=== PATIENT | female | born 1990 | race Caucasian/White ===

== ENCOUNTER 2017-01-11 08:18 | Emergency (ER) | payer OTHER ==
[~2017-01-11] VITALS: Ht 175.3 cm; Wt 86.2 kg
[~2017-01-11 08:18] MED LIST: BENZ100C PO; ONDA4TAB10 PO; PRED20TA PO
[2017-01-11 08:20] VITALS: BP 119/75
[2017-01-11] MEDS ORDERED: IV NORMAL SALINE 1,000ML 1,000 ML IV ONE (09:00)
[2017-01-11] MEDS ORDERED: FAMOTIDINE 20 MG/2 ML VIAL IVP ONE (09:20)
[2017-01-11] MEDS ORDERED: ONDANSETRON PF 4 MG/2 ML VIAL. IV ONE (09:20)
--- NOTE | 2017-01-11 12:53 | ED.ADGEN ---
Past History Past Medical History: No Pertinent History Past Surgical History: No Surgical History Alcohol Use: Occasionally Drug Use: None Adult General Chief Complaint Chief Complaint Nausea, diarrhea HPI HPI Patient is a 26-year-old female presents with nausea, multiple episodes of watery diarrhea for the past 24 hours. Patient denies vomiting, but states she is unable to drink due to severe nausea. Denies fever chills, sweats. No abdominal pain. Reports generally weak and fatigued. Multiple GI illness exposures at home. No other acute symptoms or complaints. Last menstrual period earlier this month. Review of Systems Review of Systems Review symptoms as per history of present illness. All other review symptoms are negative. Current Medications Current Medications Current Medications Medications (Trade) Dose Ordered Sig/Renard Start Time Stop Time Status Last Admin Dose Admin Famotidine (Pepcid) 20 mg 1X ONCE 01/11/17 09:20 01/11/17 09:21 DC 01/11/17 09:14 20 MG Ondansetron HCl (Zofran) 4 mg 1X ONCE 01/11/17 09:20 01/11/17 09:21 DC 01/11/17 09:14 4 MG Sodium Chloride (Iv Sodium Chloride 0.9% 1,000ml) 1,000 ml @ 1,000 mls/hr 1X ONCE 01/11/17 09:00 01/11/17 09:59 DC 01/11/17 09:15 1,000 MLS/HR Allergies Allergies Allergies Coded Allergies Type Severity Reaction Last Updated Verified No Known Drug Allergies 02/14/15 No Physical Exam Physical Exam Constitutional: Well developed, well nourished, no acute distress, non-toxic appearance. HENT: Normocephalic, atraumatic, bilateral external ears normal, oropharynx moist, no oral exudates, nose normal. Eyes: PERRLA, EOMI, conjunctiva normal. Neck: Normal range of motion, no tenderness, supple. Cardiovascular:Heart rate regular rhythm, no murmur. Lungs & Thorax: Bilateral breath sounds clear to auscultation. Abdomen: Bowel sounds normal, soft, no tenderness. Skin: Warm, dry. Back: No tenderness. Extremities: No tenderness. Neurologic: Alert and oriented X 3, normal motor function, normal sensory function, no focal deficits noted. Psychologic: Affect normal, judgement normal, mood normal. Current Patient Data Vital Signs Vital Signs Date Time Temp Pulse Resp B/P Pulse Ox O2 Delivery O2 Flow Rate FiO2 01/11/17 08:20 97.9 93 20 97 Room Air EKG EKG [] Radiology/Procedures Radiology/Procedures [] Impressions: Nausea and diarrhea consistent with GI illness prevalent community Course & Med Decision Making Course & Med Decision Making Pertinent Labs and Imaging studies reviewed. (See chart for details) [And soft, nontender tender. Symptoms significantly improved with treatment. Will continue supportive care with PCP follow-up. Return precautions reviewed.] Final Impression Final Impression [1. Nausea and diarrhea] Problems: Dragon Disclaimer Dragon Disclaimer This electronic medical record was generated, in whole or in part, using a voice recognition dictation system. MEEK RYDER DO Jan 11, 2017 10:02
== END 2017-01-11 10:47 | disposition home or self-care (01) ==
LOC: ER 08:18
DX: R11.0 Nausea (principal); R19.7 Diarrhea, unspecified; R53.1 Weakness
CPT/HCPCS: 96361; 96374; 96375; 99284; J2405; S0028; J7030

== ENCOUNTER 2017-01-16 20:57 | Emergency (ER) | payer OTHER ==
[~2017-01-16] VITALS: Ht 175.3 cm; Wt 84.5 kg
[2017-01-16 20:57] VITALS: BP 128/73
[2017-01-16] MEDS ORDERED: CIPR500T94 PO (21:25)
[2017-01-16] MEDS ORDERED: HYDR-971 PO (21:25)
--- NOTE | 2017-01-16 22:17 | ED.ADGEN ---
Past History Past Medical History: No Pertinent History Past Surgical History: No Surgical History Alcohol Use: Occasionally Drug Use: None Adult General HPI HPI Patient is a 26-year-old female presents emergency Department with continued diarrhea for the last 4-5 days. She also reports some left flank pain. She denies any fevers, chills, nausea, vomiting. Review of Systems Review of Systems Constitutional: Denies fever or chills [] Eyes: Denies change in visual acuity, redness, or eye pain [] HENT: Denies nasal congestion or sore throat [] Respiratory: Denies cough or shortness of breath [] Cardiovascular: No additional information not addressed in HPI [] GI: Denies abdominal pain, nausea, vomiting, bloody stools or diarrhea [] : Denies dysuria or hematuria [] Musculoskeletal: Denies back pain or joint pain [] Integument: Denies rash or skin lesions [] Neurologic: Denies headache, focal weakness or sensory changes [] Endocrine: Denies polyuria or polydipsia [] Allergies Allergies Allergies Coded Allergies Type Severity Reaction Last Updated Verified No Known Drug Allergies 02/14/15 No Physical Exam Physical Exam Constitutional: Well developed, well nourished, no acute distress, non-toxic appearance. [] HENT: Normocephalic, atraumatic, bilateral external ears normal, oropharynx moist, no oral exudates, nose normal. [] Eyes: PERRLA, EOMI, conjunctiva normal, no discharge. [] Neck: Normal range of motion, no tenderness, supple, no stridor. [] Cardiovascular:Heart rate regular rhythm, no murmur [] Lungs & Thorax: Bilateral breath sounds clear to auscultation [] Abdomen: Bowel sounds normal, soft, no tenderness, no masses, no pulsatile masses. [] Skin: Warm, dry, no erythema, no rash. [] Back: No tenderness, no CVA tenderness. [] Extremities: No tenderness, no cyanosis, no clubbing, ROM intact, no edema. [] Neurologic: Alert and oriented X 3, normal motor function, normal sensory function, no focal deficits noted. [] Psychologic: Affect normal, judgement normal, mood normal. [] EKG EKG [] Radiology/Procedures Radiology/Procedures [] Course & Med Decision Making Course & Med Decision Making Pertinent Labs and Imaging studies reviewed. (See chart for details) Patient has a urinary tract infection. I did give her supportive care structures regarding her diarrhea. She was started on Cipro and [place]. She will follow with her doctor as needed return emergency department sooner she develops new or worsening symptoms. [] Final Impression Final Impression Urinary tract infection [] Problems: Dragon Disclaimer Dragon Disclaimer This electronic medical record was generated, in whole or in part, using a voice recognition dictation system. ASHTYN ALLRED MD Jan 16, 2017 22:17
[2017-01-16 22:52] LABS: BILIRUBIN,URINE NEG (NEG); CLARITY,URINE CLOUDY; COLOR,URINE YELLOW; GLUCOSE,URINE NEG (NEG); NITRITE,URINE NEG (NEG); UROBILINOGEN,URINE 0.2 mg/dL (0.2 mg/dL)
[2017-01-16 23:00] LABS: BACTERIA,URINE FEW /HPF (0-FEW); SQUAMOUS EPITHELIAL CELL,UR MANY /LPF
== END 2017-01-16 21:28 | disposition home or self-care (01) ==
LOC: ER 20:57
DX: N39.0 Urinary tract infection, site not specified (principal); R19.7 Diarrhea, unspecified
CPT/HCPCS: 81001; 87086; 99284

== ENCOUNTER 2017-03-08 02:39 | Emergency (ER) | payer OTHER ==
[~2017-03-08] VITALS: Ht 170.2 cm; Wt 86.2 kg
[~2017-03-08 02:39] MED LIST changes: +CIPR500T94 PO; +HYDR-971 PO
[2017-03-08 02:50] VITALS: BP 118/70
[2017-03-08] MEDS ORDERED: ONDANSETRON ODT 4 MG TAB.RAPDIS PO ONE (03:30)
[2017-03-08] MEDS ORDERED: HYDROmorphone PF 1 MG/ML DISP.SYRIN IM ONE (03:30)
[2017-03-08 03:41] LABS: BILIRUBIN,URINE NEG (NEG); CLARITY,URINE HAZY; COLOR,URINE YELLOW; GLUCOSE,URINE NEG (NEG)
[2017-03-08 03:42] LABS: AMORPHOUS SEDIMENT,UR PRESENT /HPF; BACTERIA,URINE FEW /HPF (0-FEW); NITRITE,URINE NEG (NEG); SQUAMOUS EPITHELIAL CELL,UR FEW /LPF; UROBILINOGEN,URINE 0.2 mg/dL (0.2 mg/dL); WBC,URINE OCC /HPF (0-4)
[2017-03-08] MEDS ORDERED: KETOROLAC 30 MG/ML VIAL. IM ONE (04:00)
[2017-03-08] MEDS ORDERED: IBUP600T16 PO (04:02)
[2017-03-08] MEDS ORDERED: HYDR-2678 PO (04:02)
--- NOTE | 2017-03-08 04:02 | PHYS DOC ---
Past History Past Medical History: Sciatica Past Surgical History: No Surgical History Alcohol Use: None Drug Use: None Adult General Chief Complaint Chief Complaint: PELVIC PAIN HPI HPI Patient is a 26-year-old female with no significant past medical history who presents here today complaining of severe suprapubic pain that occurred during sexual activity approximately one half hours prior to arrival to the ER. Patient denies any new sexual partners. Patient denies any sexual positions. Patient denies any vaginal bleeding or vaginal discharge. Patient denies any pelvic pain prior to having sex this evening. Patient has any fevers shakes chills nausea. Patient did have one episode of nausea and vomiting after the pain started. Patient denies any diarrhea. Patient denies any dysuria frequency or urgency. Patient denies any vaginal discharge. Patient has any vaginal bleeding. Patient denies any rectal pain. Patient has any rectal bleeding. Patient reports her last menstrual period was approximately 3 weeks ago. Patient reports she does have the Mirena in but this is not new for her. Patient's physical exam was remarkable for suprapubic tenderness to palpation. Patient has no rebound or guarding. Patient has no psoas or obturator signs. Patient has normal active bowel sounds. Patient has no tenderness over right lower quadrant over McBurney's point. Patient does not have a Randall sign. Patient's pelvic exam was remarkable for tenderness to palpation to her suprapubic region on exam. Patient not have any adnexal masses or tenderness. Patient not have any lateralizing pain. Pain was focused in the suprapubic/ uterine region. Patient not having cervical motion tenderness. Patient have any vaginal bleeding. She have any vaginal discharge. Patient's os was normal. There was no bleeding noticed. There is no trauma noticed within the vaginal vault. The Mirena string was intact and visible. Patient's ER hospital course was significant for significant improvement in the pain after receiving Dilaudid 0.5 mg IM. Patient tolerated the pelvic exam well. After the pelvic exam she did have increased discomfort so Toradol 60 IM was also given. I discussed with the patient the option of getting a CT scan of her abdomen and pelvis. Patient's physical exam currently did not exhibit any signs or symptoms of an acute surgical abdomen. The risks and benefit of radiation versus observation were discussed with the patient the patient currently prefers waiting and observing. I discussed with the patient that the pain increases or changes that she needs to return immediately to get the CT scan. Patient is in complete agreement with this plan. Utilizing shared decision making we have opted to hold off for getting a CT scan of her abdomen and pelvis given the increased risk of radiation and cancer down the road. Although I told the patient that a CT scan would help rule out several other pathology I think the likelihood of an abnormality being found by the CT scan that would be intervened on by us is relatively low although not impossible. Assessment and plan #1 suprapubic pain and abdominal discomfort occurring after sexual intercourse. Etiology is unclear however most likely secondary to trauma from sex. Patient prefers to wait prior to any further radiological studies. Patient will be treated with pain meds for the next 24 hours and she'll reassess the situation that point to determine whether or not she wants to return to the ER to get a CT scan. I do not disagree with this plan and I think this is 1 potential option. Patient has refused a CT scan of the abdomen and pelvis at this time. Patient's urinalysis was unremarkable. Review of Systems Review of Systems Constitutional: Denies fever or chills [] Eyes: Denies change in visual acuity, redness, or eye pain [] HENT: Denies nasal congestion or sore throat [] Respiratory: Denies cough or shortness of breath [] All other review systems are negative except as documented in the history of present illness portion. Current Medications Current Medications Current Medications Medications (Trade) Dose Ordered Sig/Renard Start Time Stop Time Status Last Admin Dose Admin Hydromorphone HCl (Dilaudid) 0.5 mg 1X ONCE 03/08/17 03:30 03/08/17 03:31 DC 03/08/17 03:10 0.5 MG Ketorolac Tromethamine (Toradol) 60 mg 1X ONCE 03/08/17 04:00 03/08/17 04:01 Ondansetron HCl (Zofran Odt) 4 mg 1X ONCE 03/08/17 03:30 03/08/17 03:31 DC 03/08/17 03:11 4 MG Allergies Allergies Allergies Coded Allergies Type Severity Reaction Last Updated Verified No Known Drug Allergies 03/08/17 No Physical Exam Physical Exam Constitutional: Well developed, well nourished, no acute distress, non-toxic appearance. [] HENT: Normocephalic, atraumatic, bilateral external ears normal, oropharynx moist, no oral exudates, nose normal. [] Eyes: PERRLA, EOMI, conjunctiva normal, no discharge. [] Neck: Normal range of motion, no tenderness, supple, no stridor. [] Cardiovascular:Heart rate regular rhythm, no murmur [] Lungs & Thorax: Bilateral breath sounds clear to auscultation [] Abdomen: Bowel sounds normal, soft, tenderness noted to palpation in the suprapubic region. Patient not exhibiting any signs or symptoms O be consistent with an acute surgical abdomen., no masses, no pulsatile masses. [] Skin: Warm, dry, no erythema, no rash. [] Back: No tenderness, no CVA tenderness. [] Extremities: No tenderness, no cyanosis, no clubbing, ROM intact, no edema. [] Neurologic: Alert and oriented X 3, normal motor function, normal sensory function, no focal deficits noted. [] Psychologic: Affect normal, judgement normal, mood normal. [] Pelvic exam: Please see above. Reevaluation multiple times in the ER reveals no surgical abdomen. Patient's exam is benign at this time. Patient still does have some suprapubic tenderness to palpation. Current Patient Data Vital Signs Vital Signs Date Time Temp Pulse Resp B/P (MAP) Pulse Ox O2 Delivery O2 Flow Rate FiO2 03/08/17 03:45 97 Room Air 03/08/17 02:50 98.1 75 Lab Results Laboratory Tests Test 03/08/17 03:15 Urine Collection Type Unknown Urine Color Yellow Urine Clarity Hazy Urine pH 7.0 Urine Specific [place] 1.020 Urine Protein Trace (NEG-TRACE) Urine Glucose (UA) Neg mg/dL (NEG) Urine Ketones (Stick) Neg mg/dL (NEG) Urine Blood Trace (NEG) Urine Nitrite Neg (NEG) Urine Bilirubin Neg (NEG) Urine Urobilinogen Dipstick 0.2 mg/dL (0.2 mg/dL) Urine Leukocyte Esterase Neg (NEG) Urine RBC 1-2 /HPF (0-2) Urine WBC Occ /HPF (0-4) Urine Squamous Epithelial Cells Few /LPF Urine Amorphous Sediment Present /HPF Urine Bacteria Few /HPF (0-FEW) Urine Mucus Slight /LPF EKG EKG [] Radiology/Procedures Radiology/Procedures [] Course & Med Decision Making Course & Med Decision Making Pertinent Labs and Imaging studies reviewed. (See chart for details) [] Dragon Disclaimer Dragon Disclaimer This chart was dictated in whole or in part using Voice Recognition software in a busy, high-work load, and often noisy Emergency Department environment. It may contain unintended and wholly unrecognized errors or omissions. Departure Departure: Impression: Primary Impression: Pelvic pain Disposition: HOME, SELF-CARE Condition: IMPROVED Referrals: PCP,NO (PCP) Patient Instructions: Pelvic Pain, Female Scripts Hydrocodone/Acetaminophen (Lortab 5-325 mg Tablet) 1 Each Tablet 1 TAB PO PRN Q6HRS Y for PAIN, #10 TAB 0 Refills Prov: CHARLY PANDA MD 03/08/17 Ibuprofen (IBUPROFEN) 600 Mg Tablet 600 MG PO QID Y for PAIN, #20 Prov: CHARLY PANDA MD 03/08/17 CHARLY PANDA MD March 08, 2017 04:02
[2017-03-11 21:08] LABS: CHLAMYDIA PROBE Negative (Negative)
== END 2017-03-08 04:10 | disposition home or self-care (01) ==
LOC: ER 02:39
DX: R10.2 Pelvic and perineal pain (principal)
CPT/HCPCS: 36415; 81001; 87491; 87591; 96372; 99284; J1170; J1885; Q0111; Q0162

== ENCOUNTER 2018-01-31 17:47 | Emergency (ER) | payer BC, OTHER ==
[~2018-01-31] VITALS: Ht 170.2 cm; Wt 84.5 kg
[~2018-01-31 17:47] MED LIST changes: +HYDR-2678 PO; +IBUP600T16 PO
[2018-01-31] MEDS ORDERED: IV NORMAL SALINE 1,000ML 1,000 ML IV ONE ×2 (18:15→19:30)
[2018-01-31] MEDS ORDERED: ONDANSETRON PF 4 MG/2 ML VIAL. IV ONE ×2 (18:15→19:15)
--- NOTE | 2018-01-31 18:15 | ED.ADGEN ---
Past History Past Medical History: No Pertinent History, Sciatica Past Surgical History: No Surgical History Alcohol Use: Occasionally Drug Use: None Adult General Chief Complaint Chief Complaint nausea/vomiting/diarrhea HPI HPI Patient is a 27 year old female who presents with nausea and vomiting, now with diarrhea. Ate breakfast this am and around 11am started vomiting and this has continued. Initially food but now more phlegm. Pt then developed loose stools with some crampy abdominal pain that resolves with vomiting. No bile or blood in vomit, no known sick contacts, no fevers. Pt denies other alleviating or exacerbating symptoms. No prior abdominal surgeries. LMP 2 weeks ago and denies possibility of being . Pt did drink etoh last night, reports 2 beers. Review of Systems Review of Systems Constitutional: Denies fever or chills [] Eyes: Denies change in visual acuity, redness, or eye pain [] HENT: Denies nasal congestion or sore throat [] Respiratory: Denies cough or shortness of breath [] Cardiovascular: denies chest pain GI:per hpi : Denies dysuria or hematuria [] Musculoskeletal: Denies back pain or joint pain [] Integument: Denies rash or skin lesions [] Neurologic: Denies headache, focal weakness or sensory changes [] Current Medications Current Medications Current Medications Medications (Trade) Dose Ordered Sig/Renard Start Time Stop Time Status Last Admin Dose Admin Ketorolac Tromethamine (Toradol) 30 mg 1X ONCE 01/31/18 19:15 01/31/18 19:16 DC 01/31/18 19:20 30 MG Ondansetron HCl (Zofran) 4 mg 1X ONCE 01/31/18 19:15 01/31/18 19:16 DC 01/31/18 19:19 4 MG Sodium Chloride 1,000 ml @ 1,000 mls/hr 1X ONCE 01/31/18 19:30 01/31/18 20:29 01/31/18 19:20 1,000 MLS/HR Allergies Allergies Allergies Coded Allergies Type Severity Reaction Last Updated Verified No Known Drug Allergies 03/08/17 No Physical Exam Physical Exam Constitutional: Well developed, well nourished, ill appearing, non-toxic appearance. [] HENT: Normocephalic, atraumatic, bilateral external ears normal, oropharynx slightly dry, no oral exudates, nose normal. [] Eyes: PERRLA, EOMI, conjunctiva normal, no discharge. [] Neck: Normal range of motion, no tenderness, supple, no stridor. [] Cardiovascular:Heart rate tachy with regular rhythm, no murmur [] Lungs & Thorax: Bilateral breath sounds clear to auscultation [] Abdomen: Bowel sounds normal, soft, no tenderness, no masses, no pulsatile masses. no guarding or peritoneal signs, non distended, neg mcburneys, neg murphys Skin: Warm, dry, no erythema, no rash. [] Back: No tenderness, no CVA tenderness. [] Extremities: No tenderness, no cyanosis, no clubbing, ROM intact, no edema. [] Neurologic: Alert and oriented X 3, normal motor function, normal sensory function, no focal deficits noted. [] Psychologic: Affect normal, judgement normal, mood normal. [] Current Patient Data Vital Signs Vital Signs Date Time Temp Pulse Resp B/P (MAP) Pulse Ox O2 Delivery O2 Flow Rate FiO2 01/31/18 19:25 95 22 102/56 (71) 99 Room Air 01/31/18 17:56 97.9 Lab Results Laboratory Tests Test 01/31/18 18:12 01/31/18 18:15 01/31/18 19:05 White Blood Count 14.2 x10^3/uL (4.0-11.0) H Red Blood Count 5.23 x10^6/uL (3.50-5.40) Hemoglobin 15.8 g/dL (12.0-15.5) H Hematocrit 46.6 % (36.0-47.0) Mean Corpuscular Volume 89 fL (79-100) Mean Corpuscular Hemoglobin 30 pg (25-35) Mean Corpuscular Hemoglobin Concent 34 g/dL (31-37) Red Cell Distribution Width 13.3 % (11.5-14.5) Platelet Count 207 x10^3/uL (140-400) Neutrophils (%) (Auto) 90 % (31-73) H Lymphocytes (%) (Auto) 5 % (24-48) L Monocytes (%) (Auto) 5 % (0-9) Eosinophils (%) (Auto) 0 % (0-3) Basophils (%) (Auto) 0 % (0-3) Neutrophils # (Auto) 12.7 x10^3uL (1.8-7.7) H Lymphocytes # (Auto) 0.7 x10^3/uL (1.0-4.8) L Monocytes # (Auto) 0.6 x10^3/uL (0.0-1.1) Eosinophils # (Auto) 0.1 x10^3/uL (0.0-0.7) Basophils # (Auto) 0.0 x10^3/uL (0.0-0.2) Sodium Level 141 mmol/L (136-145) Potassium Level 3.6 mmol/L (3.5-5.1) Chloride Level 105 mmol/L (98-107) Carbon Dioxide Level 24 mmol/L (21-32) Anion Gap 12 (6-14) Blood Urea Nitrogen 21 mg/dL (7-20) H Creatinine 0.7 mg/dL (0.6-1.0) Estimated GFR (Cockcroft-Gault) 99.6 BUN/Creatinine Ratio 30 (6-20) H Glucose Level 108 mg/dL (70-99) H Calcium Level 8.8 mg/dL (8.5-10.1) Total Bilirubin 0.7 mg/dL (0.2-1.0) Aspartate Amino Transferase (AST) 20 U/L (15-37) Alanine Aminotransferase (ALT) 49 U/L (14-59) Alkaline Phosphatase 71 U/L (46-116) Total Protein 7.0 g/dL (6.4-8.2) Albumin 3.8 g/dL (3.4-5.0) Albumin/Globulin Ratio 1.2 (1.0-1.7) POC Urine HCG, Qualitative hcg negative (Negative) Urine Collection Type Unknown Urine Color Yellow Urine Clarity Cloudy Urine pH 5.5 Urine Specific [place] 1.015 Urine Protein Neg (NEG-TRACE) Urine Glucose (UA) Neg mg/dL (NEG) Urine Ketones (Stick) >=160 mg/dL (NEG) Urine Blood Small (NEG) Urine Nitrite Neg (NEG) Urine Bilirubin Neg (NEG) Urine Urobilinogen Dipstick 0.2 mg/dL (0.2 mg/dL) Urine Leukocyte Esterase Neg (NEG) Urine RBC 3-5 /HPF (0-2) Urine WBC 1-4 /HPF (0-4) Urine Squamous Epithelial Cells Many /LPF Urine Bacteria Few /HPF (0-FEW) Urine Mucus Mod /LPF EKG EKG [] Radiology/Procedures Radiology/Procedures [] Course & Med Decision Making Course & Med Decision Making Pertinent Labs and Imaging studies reviewed. (See chart for details) IV started, labs/ua/ucg ordered, zofran and IV 1L NS bolus given. Pt started having some crampy abdominal pain and persistent nausea, no vomiting while in the ED. Second dose of zofran given, toradol IV and second L NS bolus. Pt states her symptoms have resolved. I discussed dc with zofran and pt is agreeable. I explained strict return precautions and pt states she can return if her symptoms worsen. dc'd with starter pack of zofran and RX for same. Recommend f/u with PCP Final Impression Final Impression Viral gastroenteritis.[] Problems: Dragon Disclaimer Dragon Disclaimer This electronic medical record was generated, in whole or in part, using a voice recognition dictation system. AV PARTIDA MD Jan 31, 2018 18:15
[2018-01-31 18:45] LABS: BASO % 0 % (0-3); EOS # 0.1 x10^3/uL (0.0-0.7); EOS % 0 % (0-3); HEMATOCRIT 46.6 % (36.0-47.0); HEMOGLOBIN 15.8 g/dL (12.0-15.5); LYMPH # 0.7 x10^3/uL (1.0-4.8); LYMPH % 5 % (24-48); MEAN CORPUSCULAR HEMOGLOBIN 30 pg (25-35); MEAN CORPUSCULAR HGB CONC 34 g/dL (31-37); MEAN CORPUSCULAR VOLUME 89 fL (79-100); MONO # 0.6 x10^3/uL (0.0-1.1); MONO % 5 % (0-9); NEUT # 12.7 x10^3uL (1.8-7.7); NEUT % 90 % (31-73); PLATELET COUNT 207 x10^3/uL (140-400); RED BLOOD COUNT 5.23 x10^6/uL (3.50-5.40); RED CELL DISTRIBUTION WIDTH 13.3 % (11.5-14.5); WHITE BLOOD COUNT 14.2 x10^3/uL (4.0-11.0)
[2018-01-31 18:51] LABS: ALBUMIN 3.8 g/dL (3.4-5.0); ALBUMIN/GLOBULIN RATIO 1.2 (1.0-1.7); CALCIUM 8.8 mg/dL (8.5-10.1); CREATININE 0.7 mg/dL (0.6-1.0); GFR 99.6; POTASSIUM 3.6 mmol/L (3.5-5.1); TOTAL BILIRUBIN 0.7 mg/dL (0.2-1.0)
[2018-01-31] MEDS ORDERED: KETOROLAC 30 MG/ML VIAL. IV ONE (19:15)
[2018-01-31 19:38] LABS: BILIRUBIN,URINE NEG (NEG); CLARITY,URINE CLOUDY; COLOR,URINE YELLOW; GLUCOSE,URINE NEG (NEG)
[2018-01-31 19:39] LABS: BACTERIA,URINE FEW /HPF (0-FEW); NITRITE,URINE NEG (NEG); SQUAMOUS EPITHELIAL CELL,UR MANY /LPF; UROBILINOGEN,URINE 0.2 mg/dL (0.2 mg/dL)
[2018-01-31] MEDS ORDERED: ONDA4TAB10 SL (19:59)
[2018-01-31 20:05] VITALS: BP 123/66
[2018-01-31] MEDS ORDERED: ONDANSETRON 4MG ODT 4TABLET STARTPACK. PO ONE (20:15)
== END 2018-01-31 20:10 | disposition home or self-care (01) ==
LOC: ER 17:47
DX: A08.4 Viral intestinal infection, unspecified (principal)
CPT/HCPCS: 36415; 80053; 81001; 81025; 85025; 96361; 96374; 96375; 96376; 99284; J1885; J2405; J7030

== ENCOUNTER 2018-08-02 10:12 | Emergency (ER) | payer BC ==
[~2018-08-02] VITALS: Ht 175.3 cm; Wt 81.6 kg
[~2018-08-02 10:12] MED LIST changes: +ONDA4TAB10 SL
[2018-08-02 11:03] VITALS: BP 109/69
[2018-08-02] MEDS ORDERED: NAPR-683 PO (11:49)
[2018-08-02] MEDS ORDERED: CYCL-331 PO (11:49)
--- NOTE | 2018-08-02 11:50 | PHYS DOC ---
Past History Past Medical History: Migraines, Sciatica Past Surgical History: No Surgical History Alcohol Use: Occasionally Drug Use: None Adult General Chief Complaint Chief Complaint: muscle pain [facility] HPI Patient is a 28 year old female who presents with pinning of muscle pain and generalized weakness for the last 2 days with cough. Patient states she missed her job for the last 2 days and had increase of her chronic sciatica back pain because of cough. Patient states she finished her menstruation 2 days ago and today when she wiped herself there was some mild pink blood in the wipe. She denies focal neuro deficit, fever and chills, nausea and vomiting, urinary symptoms, diarrhea and constipation. Review of Systems Review of Systems Constitutional: Denies fever or chills [] Eyes: Denies change in visual acuity, redness, or eye pain [] HENT: Denies nasal congestion or sore throat [] Respiratory: Denies cough or shortness of breath [] Cardiovascular: No additional information not addressed in HPI [] GI: Denies abdominal pain, nausea, vomiting, bloody stools or diarrhea [] : Denies dysuria or hematuria [] Musculoskeletal: Reports back pain and muscle pain Integument: Denies rash or skin lesions [] Neurologic: Denies headache, focal weakness or sensory changes [] Endocrine: Denies polyuria or polydipsia [] All other systems were reviewed and found to be within normal limits, except as documented in this note. Allergies Allergies Allergies Coded Allergies Type Severity Reaction Last Updated Verified No Known Drug Allergies 03/08/17 No Physical Exam Physical Exam Constitutional: Well developed, well nourished, mild distress, non-toxic appearance. [] HENT: Normocephalic, atraumatic, bilateral external ears normal, oropharynx moist, no oral exudates, nose normal. [] Eyes: PERRLA, EOMI, conjunctiva normal, no discharge. [] Neck: Normal range of motion, no tenderness, supple, no stridor. [] Cardiovascular:Heart rate regular rhythm, no murmur [] Lungs & Thorax: Bilateral breath sounds clear to auscultation [] Abdomen: Bowel sounds normal, soft, no tenderness, no masses, no pulsatile masses. [] Skin: Warm, dry, no erythema, no rash. [] Back: No tenderness, no CVA tenderness. [] Extremities: No tenderness, no cyanosis, no clubbing, ROM intact, no edema. [] Neurologic: Alert and oriented X 3, normal motor function, normal sensory function, no focal deficits noted. [] Psychologic: Affect normal, judgement normal, mood normal. [] Current Patient Data Vital Signs Vital Signs Date Time Temp Pulse Resp B/P (MAP) Pulse Ox O2 Delivery O2 Flow Rate FiO2 08/02/18 11:03 98.2 92 20 97 Room Air EKG EKG [] Radiology/Procedures Radiology/Procedures [] Course & Med Decision Making Course & Med Decision Making Evaluation of patient in ER showed 28-year-old female patient with complaining of muscle pain and cough for 2 days. Patient had unremarkable physical exam and mainly wanted work excuse. Dragon Disclaimer Dragon Disclaimer This electronic medical record was generated, in whole or in part, using a voice recognition dictation system. Departure Departure: Impression: Primary Impression: Viral illness Additional Impression: Sciatica Disposition: HOME, SELF-CARE (at 1148) Condition: STABLE Referrals: PCP,NO (PCP) Patient Instructions: Viral Syndrome Additional Instructions: Drink plenty of liquids Follow-up with your primary care physician in 3-5 days Return to ER if not getting better Scripts Naproxen (NAPROSYN) 500 Mg Tablet 1 TAB PO BID, #20 TAB Prov: CARMEN CHAPMAN MD 08/02/18 Cyclobenzaprine Hcl (CYCLOBENZAPRINE HCL) 10 Mg Tablet 1 TAB PO TID, #30 TAB Prov: CARMEN CHAPMAN MD 08/02/18 Problem Qualifiers CARMEN CHAPMAN MD Aug 02, 2018 11:50
== END 2018-08-02 11:58 | disposition home or self-care (01) ==
LOC: ER 10:12
DX: B33.8 Other specified viral diseases (principal); M54.42 Lumbago with sciatica, left side; G43.909 Migraine, unspecified, not intractable, without status migrainosus
CPT/HCPCS: 99283

== ENCOUNTER 2021-07-16 20:07 | Emergency (ER) | payer BC, OTHER ==
[~2021-07-16] VITALS: Ht 327.7 cm; Wt 84.5 kg
[~2021-07-16 20:07] MED LIST changes: +CYCL-331 PO; +HYDR-3165 PO; -HYDR-971 PO; +NAPR-683 PO
--- NOTE | 2021-07-16 20:50 | PHYS DOC ---
Past History Past Medical History: Migraines, Sciatica Past Surgical History: No Surgical History Alcohol Use: Occasionally Drug Use: None General Adult EDM: Chief Complaint: SORE THROAT HPI: HPI: Patient is a 31-year-old female female coming in with body aches, cough, posttussive emesis, sore throat. Patient is not vaccinated against Covid. Symptoms have been getting worse for the past 3 days. Has not take anything for cough at home. Has occasional cough with yellow mucus. Review of Systems: Review of Systems: All other systems within normal limits except for as noted in the HPI Allergies: Allergies: Allergies Coded Allergies Type Severity Reaction Last Updated Verified No Known Drug Allergies 03/08/17 No Physical Exam: PE: Constitutional: Well developed, well nourished, no acute distress, non-toxic appearance. [] HENT: Normocephalic, atraumatic, bilateral external ears normal, nose normal. Erythema and exudates in posterior pharynx [] Eyes: PERRLA, conjunctiva normal, no discharge. [] Neck: No rigidity, supple, no stridor. [] Cardiovascular: Regular rate and rhythm, brisk cap refill [] Lungs & Thorax: Non labored symmetric respirations, no tachypnea or respiratory distress [] Abdomen: Soft, nondistended. Skin: Warm, dry, no erythema, no rash. [] Back: Unremarkable Extremities: No deformities, range of motion grossly intact, no lower extremity edema [] Neurologic: Alert and oriented X 3, no focal deficits noted. [] Psychologic: Affect normal, judgement normal, mood normal. [] EKG: EKG: [] Radiology/Procedures: Radiology/Procedures: [] Heart Score: C/O Chest Pain: No Risk Factors: Risk Factors: DM, Current or recent (<one month) smoker, HTN, HLP, family history of CAD, obesity. Risk Scores: Score 0 - 3: 2.5% MACE over next 6 weeks - Discharge Home Score 4 - 6: 20.3% MACE over next 6 weeks - Admit for Clinical Observation Score 7 - 10: 72.7% MACE over next 6 weeks - Early Invasive Strategies Course & Med Decision Making: Course & Med Decision Making Pertinent Labs and Imaging studies reviewed. (See chart for details) [] Cayetano Disclaimer: Cayetano Disclaimer: This electronic medical record was generated, in whole or in part, using a voice recognition dictation system. Departure Departure: Impression: Primary Impression: Person under investigation for COVID-19 Disposition: HOME / SELF CARE / HOMELESS Condition: STABLE Referrals: NEGAR BERMUDEZ (PCP) Additional Instructions: You have been tested for or diagnosed with COVID-19. It is an infection caused by a new type of coronavirus. COVID-19 will cause cold-like or mild flu symptoms in most. It can cause more severe symptoms like problems breathing in some. There is no treatment for COVID-19. The body will clear the infection over time. Self-care will help to ease discomfort. Steps to Take: Self-Care Rest as needed. Healthy habits may help you feel better. Steps include: Choose healthy foods including fruits and vegetables. Drink water throughout the day. Get plenty of sleep each night. If you smoke, try to quit. It may ease breathing. Avoid alcohol. Keep Others Healthy The virus can spread to others. Droplets are released every time you sneeze or cough. The droplets can get into the mouth, nose, or eyes of people near you and lead to in fection. To lower the chances of spreading COVID-19 to others: Stay at home until your doctor has said it is safe to leave. If you tested positive this will mean staying isolated until both of the following are true: At least 7 days have passed since the start of illness. You are free of fever for at least 72 hours without the use of medicine. During this time: - Avoid public areas, events, or transportation. Do not return to work or school until your doctor has said it is safe to do so. - Call ahead if you need to go to a medical center. Let them know you may have COVID-19. It will help them guide you where to go. They may also ask you to wear a facemask when you come to the office. - If you call for emergency medical services, let them know you may have COVID- 19. While at home: - Try to avoid close contact with others. Stay about 6 feet away. - If possible, spend most of your time in a separate room from others. - Use a face mask if you will be in close contact with others such as sharing a room or vehicle. - Have someone wipe down common surfaces in the home. Use household creche attendant every day on areas like doorknobs, counters, or sinks. - Cough or sneeze into a tissue. Throw the tissue away right after use. If a tissue is not available, cough or sneeze into your elbow. - Wash your hands often. Wash them after sneezing or coughing. Use soap and water and wash for at least 20 seconds. Alcohol based hand cleaner touch up worker can be used if soap and water is not available. - Do not prepare food for others. Avoid sharing personal items like forks, spoons, or toothbrushes. - Avoid close contact with pets while you are sick. There is no evidence of the virus passing to pets. This is a safety step until more is known about this virus. Isolation can be frustrating. Social interaction can help. Keep in touch with friends and family through phone and tech options. You can still interact with others in your home, just keep a safe distance of about 6 feet. Follow-up: Your doctors office will check in with you to see if there are any changes in your health. You may be asked to keep track of symptoms to share with them. They will also let you know when you are clear to be in public again. Problems to Look Out For: Contact your doctor if your recovery is not going as you expect. Get emergency care if you have problems such as: - Trouble breathing - Nonstop chest pain or pressure - Changes in awareness, confusion, or problems waking - Lips or face have bluish color - Worsening of symptoms If you think you have an emergency, call for emergency medical services right away. As taken from [facility] JOSÉ HERNANDEZ MD Jul 16, 2021 20:50
[2021-07-16] MEDS ORDERED: ACETAMINOPHEN 500 MG TABLET PO ONE (21:00)
[2021-07-16 22:36] LABS: INFLUENZA A PATIENT NEGATIVE (NEGATIVE); INFLUENZA B PATIENT NEGATIVE (NEGATIVE)
[2021-07-16 23:35] VITALS: BP 124/83
--- NOTE | 2021-07-18 09:08 | NUR ---
IP: Attempted to contact pt concerning covid results. No answer, left a voicemail to return the call.
--- NOTE | 2021-07-19 11:21 | NUR ---
IP: Notified patient of negative COVID test result. Patient verbalized understanding.
== END 2021-07-16 23:35 | disposition home or self-care (01) ==
LOC: ER 20:07
DX: J02.9 Acute pharyngitis, unspecified (principal); R05 Cough; R11.10 Vomiting, unspecified; M79.10 Myalgia, unspecified site; G43.909 Migraine, unspecified, not intractable, without status migrainosus; Z20.822 Contact with and (suspected) exposure to COVID-19
CPT/HCPCS: 87070; 87804; 87880; 99282; C9803; U0003